=== PATIENT | male | born 1970 | race Caucasian/White ===

== ENCOUNTER 2016-09-02 09:22 | Emergency (ER) | payer BC | END 2016-09-02 09:37 | disposition left against medical advice (07) | LOC: ER 09:22 | DX: Z53.21 Procedure and treatment not carried out due to patient leaving prior to being seen by health care provider (principal) ==

== ENCOUNTER 2016-10-06 10:05 | Emergency (ER) | payer BC ==
--- NOTE | 2016-10-29 15:00 | ER ---
ADMIT: 10/06/2016 RM/LOC: ER [facility] MR#: [id number] [address] [address] JORDAN CLAROS [address] [place] [address] Emergency Room Report SEX: M AGE: 46 : 1970 DATE: 10/06/2016 ADDENDUM: A 46-year-old white male coming in with atypical chest pain, CBC, chemistry, troponin, EKG, and chest x-ray all negative. Does have little hypertension. At this time, we have given GI cocktail with relief. He got 30 of Toradol with relief. Change metoprolol at 25 b.i.d. and then [facility]. CONDITION ON DISCHARGE: Good. Binu Dias MD/ angelito JOB #: [id number] CC: Binu Dias MD, Attending Physician Lor Rosa NP, Family Physician
== END 2016-10-06 13:30 | disposition home or self-care (01) ==
LOC: ER 10:05
DX: R07.89 Other chest pain (principal); I10 Essential (primary) hypertension; F17.200 Nicotine dependence, unspecified, uncomplicated; Z88.8 Allergy status to other drugs, medicaments and biological substances

== ENCOUNTER 2016-11-19 12:17 | Emergency (ER) | payer OTHER, BC ==
--- NOTE | 2016-11-27 18:05 | ER ---
ADMIT: 11/19/2016 RM/LOC: ER [facility] [place] MR#: [id number] ACC#: [id number] [address] [id number] JORDAN CLAROS [address] [place] [address] Emergency Room Report SEX: M AGE: 46 : 1970 DATE: 11/19/2016 ADDENDUM: CHIEF COMPLAINT: Concerned due to having high blood pressure. HISTORY OF PRESENT ILLNESS: The patient is a 46-year-old male who [facility] all [facility], comes in with complaints of high blood pressure. Apparently, he had been at the [facility] and had his blood pressure checked, and it was 200 systolic, and he felt a little nauseated, so they sent him over for evaluation here. When he got here, the patient really has no complaints for me whatsoever and when he was triaged, and his initial blood pressure was 157/101. A repeat blood pressure showed he was 130/90. He has no symptoms at this time. He reports to me that he has been having some intermittent trouble with some volatility in his blood pressure ever since they made a change 6 months ago when they took him off his hydrochlorothiazide. PAST MEDICAL HISTORY: Hypertension, PTSD, depression, and hyperlipidemia. MEDICATIONS: See nurse's note. ALLERGIES: LISINOPRIL. SOCIAL HISTORY: Smokes a pack a day. Has a history of drug and alcohol abuse. PHYSICAL EXAMINATION: See T-sheet for complete physical exam. MEDICAL DECISION MAKING: Based on the patient's lack of any complaints at this time and due to the fact this has been going on for 6 months and his blood pressure is normal here, the plan is to get him discharged from our facility so he can [facility], so we can address the issues with his blood pressure medication management with his primary provider at the [facility]. The patient is discharged home in stable condition with a diagnosis of hypertension. Des Kwon MD/ angelito JOB #: [id number] CC: Des Kwon MD, Attending Physician [facility] Physician, Family Physician
== END 2016-11-19 13:15 | disposition home or self-care (01) ==
LOC: ER 12:17
DX: I10 Essential (primary) hypertension (principal); F32.9 Major depressive disorder, single episode, unspecified; E78.5 Hyperlipidemia, unspecified; F17.210 Nicotine dependence, cigarettes, uncomplicated; Z88.8 Allergy status to other drugs, medicaments and biological substances; Z79.899 Other long term (current) drug therapy; Z98.890 Other specified postprocedural states